=== PATIENT | female | born 1990 | race Caucasian/White ===

== ENCOUNTER 2019-07-16 15:26 | Emergency (ER) | payer SELFPAY ==
[2019-07-16] MEDS ORDERED: Ondansetron ODT 4 MG TAB ONE ×2 (16:12→17:08)
== END 2019-07-16 17:33 | disposition home or self-care (01) ==
LOC: ERS 15:26
DX: R11.2 Nausea with vomiting, unspecified (principal); F17.210 Nicotine dependence, cigarettes, uncomplicated
CPT/HCPCS: 99283; Q0162

== ENCOUNTER 2019-08-08 14:44 | Emergency (ER) | payer OTHER, SELFPAY ==
[2019-08-08] MEDS ORDERED: Fluorescein Opthalmic Strip ONE (15:00)
[2019-08-08] MEDS ORDERED: Proparacaine 0.5% Opth 15 ML BOT ONE ×2 (15:00→15:40)
[2019-08-08] MEDS ORDERED: HYDROcodone/Acetaminophen 10/325 mg Tablet ONE (16:02)
[2019-08-08] MEDS ORDERED: Erythromycin Base 0.5% Oint 1 GM TUBE ONE (16:16)
== END 2019-08-08 16:29 | disposition home or self-care (01) ==
LOC: ERS 14:44
DX: S05.91XA Unspecified injury of right eye and orbit, initial encounter (principal); F17.210 Nicotine dependence, cigarettes, uncomplicated; W22.8XXA Striking against or struck by other objects, initial encounter
CPT/HCPCS: 99283